=== PATIENT | female | born 1950 | race Caucasian/White ===

== ENCOUNTER 2016-08-04 16:18 | Emergency (ER) | payer BC ==
--- NOTE | 2016-08-04 16:35 | PDOC ---
History of Present Illness - General History Source: Patient Exam Limitations: No Limitations - History of Present Illness Initial Comments: 08/04/16 18:43 The patient is a 65 year old female with no significant past medical history who presents to the ED with complaints of nausea, vomiting, and dizziness for 3 hours. The patient reports she ate some old shrimp around 12 pm earlier today. The patient reports feeling dizzy/nauseaus 1:30 pm. The patient reports multiple episodes of vomiting that was nonbloody. She denies blood in the vomit. Denies abdominal pain, diarrhea, or hematochezia. Denies chest pain or shortness of breath. Denies dysuria, frequency, urgency, or hematuria. Denies fevers or chills. Denies any other symptoms. <Darrel Cotto - Last Filed: 08/04/16 18:43> <Santosh Ramirez - Last Filed: 08/04/16 19:09> - General Chief Complaint: Nausea/Vomiting Stated Complaint: VOMITING,NAUSEA Time Seen by Provider: 08/04/16 16:35 Past History <Darrel Cotto - Last Filed: 08/04/16 18:43> <Santosh Ramirez - Last Filed: 08/04/16 19:09> - Past Medical History Allergies/Adverse Reactions: Allergies Allergy/AdvReac Type Severity Reaction Status Date / Time No Known Allergies Allergy Verified 08/04/16 16:29 Home Medications: Ambulatory Orders Cholecalciferol (Vitamin D3) [Vitamin D3 -] 400 unit PO DAILY 08/04/16 Review of Systems - Review of Systems Able to Perform ROS?: Yes Comments:: 08/04/16 18:43 CONSTITUTIONAL: No reported: Fever, Chills, Diaphoresis, Generalized Weakness, Malaise, Loss of Appetite HEENT: No reported: Rhinorrhea, Nasal Congestion, Throat Pain, Throat Swelling, Difficulty Swallowing, Mouth Swelling, Ear Pain, Eye Pain, Visual Changes CARDIOVASCULAR: No reported: Chest Pain, Syncope, Palpitations, Irregular Heart Rate, Lightheadedness, Peripheral Edema RESPIRATORY: No reported: Cough, Shortness of Breath, SOB with Exertion, Orthopnea, Wheezing , Stridor, Hemoptysis GASTROINTESTINAL: + nausea, vomiting No reported: Abdominal pain, Abdominal Distension, Diarrhea, Constipation, Melena, Hematochezia GENITOURINARY: No reported: Dysuria, Frequency, Urgency, Hesitancy, Flank Pain, Genital Pain MUSCULOSKELETAL: No reported: Myalgia, Arthralgia, Joint Swelling, Back pain, Neck Pain SKIN: No reported: Rash, Itching, Pallor HEMEATOLOGIC/IMMUNOLOGIC: No reported: Easy Bleeding, Easy Bruising, Lymphadenopathy, Frequent infections ENDOCRINE: No reported: Unexplained Weight Gain, Unexplained Weight Loss, Heat Intolerance , Cold Intolerance NEUROLOGIC: + dizziness No reported: Headache, Focal Weakness, Paresthesias, Vertigo, Lightheadedness, Unsteady Gait, Seizure, Mental Status Changes, Incontinence PSYCHIATRIC: No reported: Anxiety, Depression All Other Systems: Reviewed and Negative <Malik Cottos - Last Filed: 08/04/16 18:43> *Physical Exam - Vital Signs Last Vital Signs Temp Pulse Resp BP Pulse Ox 97.4 F L 56 L 20 157/72 100 08/04/16 16:30 08/04/16 16:30 08/04/16 16:30 08/04/16 16:30 08/04/16 16:30 - Physical Exam Comments: 08/04/16 18:44 GENERAL: The patient is awake, alert, and fully oriented, Nontoxic - in no acute distress. HEAD: Normocephalic, atraumatic. EYES: extraocular movements intact, sclera anicteric, conjunctiva clear. ENT: Normal voice, Moist mucous membranes. NECK: Normal range of motion, supple LUNGS: Breath sounds equal, clear to auscultation bilaterally. No wheezes, no rhonchi, no rales. HEART: Regular rate and rhythm, without murmur, rub or gallop. ABDOMEN: Soft, nontender, normoactive bowel sounds. No guarding, no rebound.No CVA tenderness EXTREMITIES: Normal range of motion, no edema. No clubbing or cyanosis. No cords, erythema, or tenderness. NEUROLOGICAL: No facial assymetry, Normal speech, PSYCH: Normal mood, normal affect. SKIN: Warm, Dry, normal turgor, <Darrel Cotto - Last Filed: 08/04/16 18:43> Heart Score/ECG Review - ECG Impressions Comment:: 08/04/16 17:20 Twelve-lead EKG was performed and reviewed by me. There is normal sinus rhythm with a normal rate. Rate of 82 The axis is normal. qtc interval of 481 There is normal R wave progression Nonspecific ST-T wave changes <Santosh Ramirez - Last Filed: 08/04/16 19:09> ED Treatment Course - LABORATORY CBC & Chemistry Diagram: 08/04/16 16:42 08/04/16 16:42 - ADDITIONAL ORDERS Additional order review: Laboratory Results 08/04/16 08/04/16 16:42 16:42 Sodium 141 Potassium 4.2 Chloride 105 Carbon Dioxide 23 Anion Gap 13 BUN 19 H Creatinine 0.6 Creat Clearance w eGFR > 60 Random Glucose 102 Calcium 9.1 Total Bilirubin 0.3 D AST 16 ALT 22 Alkaline Phosphatase 94 Total Protein 7.3 Albumin 3.9 Lipase 98 08/04/16 16:42 RBC 4.24 MCV 90.1 MCHC 33.4 RDW 13.9 MPV 7.6 Neutrophils % 84.2 H Lymphocytes % 9.9 Monocytes % 5.1 Eosinophils % 0.4 Basophils % 0.4 - Medications Given in the ED: ED Medications Discontinued Medications Generic Name Dose Route Start Last Admin Trade Name Ezekielq PRN Reason Stop Dose Admin Sodium Chloride 1,000 mls @ 1,000 mls/hr 08/04/16 16:37 08/04/16 16:51 Normal Saline - IV 08/04/16 17:36 1,000 mls/hr .Q1H ONE Administration Ondansetron HCl 4 mg 08/04/16 16:37 08/04/16 16:52 Zofran Injection IVPB 08/04/16 16:38 4 mg ONCE ONE Administration <Darrel Cotto - Last Filed: 08/04/16 18:43> - LABORATORY CBC & Chemistry Diagram: 08/04/16 16:42 08/04/16 16:42 <Santosh Ramirez - Last Filed: 08/04/16 19:09> Medical Decision Making - Medical Decision Making 08/04/16 16:44 65y F no pmhx presents with n/v since 2pm, states she had 4 day old shrimp, and started feeling nauseus with 4 episodes of vomiting, the pt denies any cp, sob, f/c, diarrhea. On exam the pt does not appear to be in any acute distress, abd is soft nontender. possible enteritis, consider acs - will onbtain screening ekg will send labs will treat supportively with fluids, monikaan will reassess A portion of this note was documented by scribe services under my direction. 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 I discussed the physical exam findings, ancillary test results and final diagnoses with the patient. I answered all of the patient's questions. The patient was satisfied with the care received and felt comfortable with the discharge plan and treatment plan. The patient will call their primary care physician within 24 hours to arrange follow-up and will return to the Emergency Department with any new, persistent or worsening symptoms. <Santosh Ramirez - Last Filed: 08/04/16 19:09> *DC/Admit/Observation/Transfer - Attestations Scribe Attestion: 08/04/16 18:44 Documentation prepared by Darrel Cotto, acting as medical records specialist for Santosh Ramirez MD <Darrel Cotto - Last Filed: 08/04/16 18:43> - Discharge Dispostion Admit: No <Santosh Ramirez - Last Filed: 08/04/16 19:09> Diagnosis at time of Disposition: Vomiting Qualifiers: Vomiting type: unspecified Vomiting Intractability: non-intractable Nausea presence: with nausea Qualified Code(s): R11.2 - Nausea with vomiting, unspecified - Discharge Dispostion Disposition: HOME Condition at time of disposition: Improved - Referrals Referrals: Lisbet Bright [Primary Care Provider] - - Patient Instructions Printed Discharge Instructions: DI for Vomiting -- Adult Additional Instructions: Return to the emergency department immediately with ANY new, persistent or worsening symptoms including worsening abdominal pain, fevers, inability to tolerate oral intake, chest pain, shortness of breath or any other concerns. Stay well hydrated. You MUST call and follow up with your doctor tomorrow. Your emergency department visit is not complete without a followup with your doctor for reevaluation. Please make sure your doctor reviews the results of your emergency evaluation. Print Language: GUATEMALAN
[2016-08-04] MEDS ORDERED: ONDANSETRON 4 MG/2 ML VIAL IVPB ONE (16:37)
[2016-08-04] MEDS ORDERED: SODIUM CHLORIDE 1,000 ML IV ONE (16:37)
[2016-08-04 16:41] VITALS: TEMP 97.4; BMI 22.6
[2016-08-04] MEDS ORDERED: ONDANSETRON 4 MG/2 ML VIAL ONE (16:45)
[2016-08-04 17:53] LABS: BASOPHIL 0.4 % (0-2.0); EOSINOPHIL 0.4 % (0-4.5); MCH 30.1 pg (25.7-33.7); MCHC 33.4 g/dl (32.0-36.0); MEAN CELL VOLUME 90.1 fl (80-96); MEAN PLT VOLUME 7.6 fl (7.5-11.1); NEUTROPHILS 84.2 % (42.8-82.8); PLATELET COUNT 352 K/MM3 (134-434); RDW 13.9 % (11.6-15.6); WHITE BLOOD COUNT 14.1 K/mm3 (4.0-10.0)
[2016-08-04 18:19] LABS: ALBUMIN 3.9 g/dl (3.4-5.0); ANION GAP 13 (8-16); CALCIUM 9.1 mg/dL (8.5-10.1); CO2 23 mmol/L (21-32); GLUCOSE,RANDOM 102 mg/dL (74-106)
[2016-08-04 18:24] LABS: ALK PHOS 94 U/L (45-117); BILIRUBIN,TOTAL 0.3 mg/dL (0.2-1.0); CREATININE 0.6 mg/dL (0.55-1.02); SGOT/AST 16 U/L (15-37); SGPT/ALT 22 U/L (12-78); TOT PROT 7.3 g/dl (6.4-8.2)
[2016-08-04 19:09] VITALS: BP 148/75; PULSE 61
[2016-08-04 20:04] LABS: URINE APPEARANCE SLCLOUDY; URINE BILIRUBIN NEGATIVE (NEGATIVE); URINE BLOOD NEGATIVE (NEGATIVE); URINE COLOR LTYELLOW; URINE GLUCOSE (UA) NEGATIVE (NEGATIVE); URINE KETONE 1+ (NEGATIVE); URINE NITRITE NEGATIVE (NEGATIVE); URINE PROTEIN NEGATIVE (NEGATIVE); URINE UROBILINOGEN NEGATIVE E.U./dl (0.2-1.0)
[2016-08-04 20:06] LABS: URINE LEUK ESTERASE TRACE (NEGATIVE)
[2016-08-04 20:08] LABS: URINE MUCUS RARE; URINE RBC 1 /hpf (0-3); URINE WBC 2 /hpf (3-5)
--- NOTE | 2016-08-05 12:20 | EKG ---
Test Reason : Blood Pressure : / mmHG Vent. Rate : 082 BPM Atrial Rate : 082 BPM P-R Int : 158 ms QRS Dur : 082 ms QT Int : 412 ms P-R-T Axes : 048 -04 054 degrees QTc Int : 481 ms NORMAL SINUS RHYTHM NONSPECIFIC T WAVE ABNORMALITY PROLONGED QT ABNORMAL ECG NO PREVIOUS ECGS AVAILABLE Confirmed by IVETH MONTE MD ([id number]) on 08/05/2016 12:20:12 PM Referred By: Confirmed By:IVETH MONTE MD
== END 2016-08-04 19:09 | disposition home or self-care (01) ==
LOC: JER 16:18
PROC: 3E0337Z Introduction of Electrolytic and Water Balance Substance into Peripheral Vein, Percutaneous Approach (ICD-10-PCS; principal; 2016-08-04)
PROC: 3E033GC Introduction of Other Therapeutic Substance into Peripheral Vein, Percutaneous Approach (ICD-10-PCS; 2016-08-04)
DX: R11.2 Nausea with vomiting, unspecified (principal)
CPT/HCPCS: 36415; 80053; 81003; 81015; 83690; 85025; 93005; 93010; 99284-25

== ENCOUNTER 2018-02-22 15:47 | Emergency (ER) | payer BC ==
[2018-02-22 15:55] VITALS: BP 181/97; PULSE 89; TEMP 98.7; BMI 21.9
--- NOTE | 2018-02-22 15:55 | PDOC ---
Rapid Medical Evaluation Chief Complaint: Back Pain Time Seen by Provider: 02/22/18 15:49 Medical Evaluation: Allergies Allergy/AdvReac Type Severity Reaction Status Date / Time No Known Allergies Allergy Verified 02/22/18 15:50 02/22/18 15:53 I have performed a brief in-person evaluation of this patient. The patient presents with a chief complaint of: lower back pains radiating down right posterior thigh for 3 days Pertinent physical exam findings: moderate tenderness to right paravertebral muscle of lumbaspine of L2-L5 I have ordered the following: x-ray of lumbosacral The patient will proceed to the ED for further evaluation. 02/22/18 16:34 Discharge Disposition - Diagnosis Lower back pain Qualifiers: Chronicity: acute Back pain laterality: right Sciatica presence: with sciatica Sciatica laterality: sciatica of right side Qualified Code(s): M54.41 - Lumbago with sciatica, right side - Referrals - Patient Instructions - Post Discharge Activity
[2018-02-22] MEDS ORDERED: KETOROLAC TROMETHAMINE 30 MG/1 ML VIAL IM ONE (16:09)
[2018-02-22] MEDS ORDERED: CYCLOBENZAPRINE HCL 10 MG TABLET (FP) PO ONE (16:09)
--- NOTE | 2018-02-22 16:13 | PDOC ---
History of Present Illness - General Chief Complaint: Back Pain Stated Complaint: BACK PAIN Time Seen by Provider: 02/22/18 15:49 History Source: Patient Exam Limitations: No Limitations - History of Present Illness Initial Comments: 02/22/18 16:10 CHIEF COMPLAINT: Lower back pain for 3 days HISTORY OF PRESENT ILLNESS: This is 67-year-old woman who denies past medical history presents emergency Department with lower back pain for 3 days which radiates down the back of her right leg. Patient does not remember any trauma, heavy lifting or twisting motions prior to injury. Patient denies any urinary retention, urinary incontinence, fecal incontinence, saddle anesthesia, history of IV drug use or history of cancer. REVIEW OF SYSTEMS: GENERAL: Afebrile, denies any weakness RESPIRATORY: No cough, wheezing, or hemoptysis. CARDIAC: No chest pain or shortness of breath MUSCULOSKELETAL: Pain to right lower back. No point tenderness. SKIN : No erythema, no bruising, no deformity. GI/: Denies any abdominal pain, no urinary difficulty, incontinence or urinary retention. RECTAL: Denies any difficulty this A.m. NEUROLOGICAL: Denies any numbness or tingling. No neurosensory deficits. PHYSICAL EXAM: GENERAL: The patient is awake, alert, and fully oriented, in no acute distress. RESPIRATORY: Lungs clear bilaterally, no rhonchi wheezes or crackles CARDIAC: S1-S2 audible, no murmur rub or gallop MUSCULOSKELETAL: Pain to right lower back, no tingling or sensory deficit. Less than 2 second cap refill, +2 pedal pulses. No CVAT. Palpable right paraspinous muscle spasm. GI/: Abdomen soft, nontender, nondistended. No rebound tenderness. No masses palpable. MUSCULOSKELETAL: No spinal point tenderness. Normal reflexive and no deficits to sensation or strength. RECTAL: Deferred patient with no neurological findings SKIN: Warm, Dry, normal turgor, no erythema, no edema no bruising. Past History - Past Medical History Allergies/Adverse Reactions: Allergies Allergy/AdvReac Type Severity Reaction Status Date / Time No Known Allergies Allergy Verified 02/22/18 15:50 Home Medications: Ambulatory Orders Cholecalciferol (Vitamin D3) [Vitamin D3 -] 400 unit PO DAILY 08/04/16 traZODone HCL [Desyrel -] 100 mg PO HS #30 tablet 11/15/16 Suvorexant [Belsomra] 20 mg PO HS #30 tablet MDD 20 03/05/17 Suvorexant [Belsomra] 20 mg PO HS #30 tablet MDD 20 07/24/17 Prednisolone [Millipred Dp] 5 mg PO AM #30 tab.ds.pk 08/06/17 Methocarbamol [Robaxin -] 1,500 mg PO Q8H PRN #30 tablet 02/22/18 COPD: No - Immunization History Immunization Up to Date: Yes - Suicide/Smoking/Psychosocial Hx Smoking History: Never smoked Hx Alcohol Use: No Drug/Substance Use Hx: No *Physical Exam - Vital Signs Last Vital Signs Temp Pulse Resp BP Pulse Ox 98.7 F 89 18 181/97 H 99 02/22/18 15:50 02/22/18 15:50 02/22/18 15:50 02/22/18 15:50 02/22/18 15:50 Medical Decision Making - Medical Decision Making 02/22/18 16:12 A/P: 67-year-old woman with lower back pain with right-sided sciatica Patient's blood pressure is 181/79- ikely due to pain as patient has no history of hypertension Palpable muscle spasm in the right paraspinous area Toradol 30mg IM, Flexeril 10mg PO, reassess 02/22/18 16:43 Pt states relief of pain s/p Toradol. I discussed the physical exam findings, ancillary test results and final diagnoses with the patient. I answered all of the patient's questions. The patient was satisfied with the care received and felt comfortable with the discharge plan and treatment plan. The patient will call their primary care physician within 24 hours to arrange follow-up and will return to the Emergency Department with any new, persistent or worsening symptoms. *DC/Admit/Observation/Transfer Diagnosis at time of Disposition: Lower back pain Qualifiers: Chronicity: acute Back pain laterality: right Sciatica presence: with sciatica Sciatica laterality: sciatica of right side Qualified Code(s): M54.41 - Lumbago with sciatica, right side - Discharge Dispostion Disposition: HOME Condition at time of disposition: Stable Decision to Admit order: No - Prescriptions Prescriptions: Methocarbamol [Robaxin -] 1,500 mg PO Q8H PRN #30 tablet PRN Reason: Back Pain - Referrals - Patient Instructions Additional Instructions: Rest, no heavy lifting or exercise until pain is resolved Hot soaks to neck and low back as often as possible/hot showers or Jacuzzis No massage or therapy until spasm is gone Continue ibuprofen 2-200 mg tablets every 6 hours for the next 3 days then as needed for pain and swelling Robaxin 1500mg every 8 hours as needed for spasm If not significant improvement within 24 hours with medication and rest regime, followup with private physician for change in medications and /or therapy. - Post Discharge Activity
[2018-02-22] MEDS ORDERED: CYCLOBENZAPRINE HCL 10 MG TABLET (FP) ONE (16:17)
[2018-02-22] MEDS ORDERED: KETOROLAC TROMETHAMINE 30 MG/1 ML VIAL ONE (16:17)
== END 2018-02-22 16:54 | disposition home or self-care (01) ==
LOC: JERFT 15:47
PROC: 3E0233Z Introduction of Anti-inflammatory into Muscle, Percutaneous Approach (ICD-10-PCS; principal; 2018-02-22)
DX: M54.41 Lumbago with sciatica, right side (principal)
CPT/HCPCS: 99281-25